=== PATIENT | female | born 1960 | race Caucasian/White ===

== ENCOUNTER → 2020-04-09 | Outpatient (CLI) | payer OTHER ==
[~2020-04-09] MED LIST: COLACE100 MG PO; FOLGARD TABLET1 EAC1 PO; L-LYSINE500 M1 PO; LEVOTHYROXIN0.112 M1 PO; OXYCODONE HCL 55 MG PO; PYRIDIUM200 MG PO; VIT D3 PO; ZANAFLEX4 M1 PO; ZANTAC 7575 MG PO; ZINC PO
== END ==
LOC: M.CT 09:00
PROVIDERS: ATTEND Internal Medicine
DX: Z13.6 Encounter for screening for cardiovascular disorders (principal); E78.2 Mixed hyperlipidemia; Z82.49 Family history of ischemic heart disease and other diseases of the circulatory system